=== PATIENT | male | born 1935 | race Caucasian/White ===

== ENCOUNTER 2019-04-22 16:37 | Inpatient (IN) | payer OTHER, MEDICARE ==
[~2019-04-22] VITALS: Ht 182.9 cm; Wt 96.2 kg
[~2019-04-22 16:37] MED LIST: ASPIRIN EC81 M1; AVELOX 400 MG400 MG PO; VITAMIN C + RO500 MG; ZOCOR40 MG PO
[2019-04-22 16:41] VITALS: BP 150/63
[2019-04-22] MEDS ORDERED: AMOXICILLIN 50500 MG PO (16:56)
[2019-04-22] MEDS ORDERED: SINGULAIR 10 MG10 M1 PO (16:56)
[2019-04-22 17:00] LABS: HEMATOCRIT 39.5 % (42.0-52.0); HEMOGLOBIN 12.9 gm/dL (14.0-18.0); MCH 29.8 pg (26.0-34.0); MCHC 32.6 g/dL (28.0-37.0); MCV 91.4 fL (80.0-100.0); PLATELET COUNT 190 thou/uL (150-400); RBC 4.32 mil/uL (4.50-6.00); RDW 15.1 % (10.5-14.5)
[2019-04-22 17:11] LABS: ANION GAP 7 mmol/L (7-16); BUN 19 mg/dL (7-18); CALCIUM 9.5 mg/dL (8.5-10.1); CHLORIDE 98 mmol/L (98-107); CO2 29 mmol/L (21-32); CREATININE 1.7 mg/dL (0.7-1.3); GLUCOSE 118 mg/dL (74-106); POTASSIUM 5.3 mmol/L (3.5-5.1); SODIUM 134 mmol/L (136-145)
[2019-04-22 17:21] LABS: ALBUMIN 4.1 g/dL (3.4-5.0); SGOT 21 U/L (15-37); SGPT 17 U/L (30-65); TOTAL BILIRUBIN 0.8 mg/dL (<0.1-1.0); TOTAL PROTEIN 8.1 g/dL (6.4-8.2); TROPONIN-I <0.06 ng/mL (<0.06)
[2019-04-22 17:30] LABS: ABSOLUTE NEUTROPHILS 25.8 thou/uL (1.4-8.2); ANISOCYTOSIS 1+
[2019-04-22 18:03] LABS: URINE BILIRUBIN NEGATIVE (Negative); URINE BLOOD TRACE (Negative); URINE CLARITY CLEAR; URINE COLOR YELLOW; URINE GLUCOSE-RANDOM* NEGATIVE (Negative); URINE KETONES NEGATIVE (Negative); URINE LEUKOCYTES-REFLEX NEGATIVE (Negative); URINE NITRITE-REFLEX NEGATIVE (Negative); URINE PROTEIN (DIPSTICK) TRACE (Negative); URINE SPECIFIC GRAVITY >= 1.030 (1.005-1.035); URINE UROBILINOGEN 0.2 E.U./dl (0.2-1.0)
--- NOTE | 2019-04-22 19:34 | NUR ---
RECIEVED REPORT FROM MARSHALL LEWIS
[2019-04-22 22:07] VITALS: BP 110/53
--- NOTE | 2019-04-22 22:20 | NUR ---
REPORT GIVEN TO ANA LEWIS ON 4S
[2019-04-22 22:26] VITALS: BP 109/49
[2019-04-22 23:16] VITALS: BP 133/66
[2019-04-23 00:18] VITALS: BP 133/57
--- NOTE | 2019-04-23 01:06 | NUR ---
PATIENT WAS A NEW ADMISSION TO THE UNIT THIS SHIFT. HE ARRIVED VIA CART FROM THE ER AND WAS ABLE TO AMBULATE TO BED WITH ASSISTANCE INCIDENT FREE. PATIENT IS FULLY ALERT AND ORIENTED AND ABLE TO PARTICIPATE FULLY IN ADMISSION AND CALL FOR NEEDS. PATIENT IS IMPULSIVE AT TIMES AND NOT ALWAYS COMPLIANT WITH HIGH FALL RISK PROTOCOL. NURSE TO COMPLETE ADMISSION AND INITIATE CARE PLAN.
[2019-04-23 03:09] LABS: HEMATOCRIT 35.1 % (42.0-52.0); HEMOGLOBIN 11.4 gm/dL (14.0-18.0); MCH 29.6 pg (26.0-34.0); MCHC 32.4 g/dL (28.0-37.0); MCV 91.4 fL (80.0-100.0); RBC 3.84 mil/uL (4.50-6.00); RDW 14.8 % (10.5-14.5); WBC 24.2 thou/uL (4.0-11.0)
[2019-04-23 03:19] LABS: ALBUMIN 3.3 g/dL (3.4-5.0); CALCIUM 8.3 mg/dL (8.5-10.1); CREATININE 1.5 mg/dL (0.7-1.3); TOTAL BILIRUBIN 0.8 mg/dL (<0.1-1.0); TOTAL PROTEIN 6.2 g/dL (6.4-8.2)
[2019-04-23 03:46] LABS: POTASSIUM 4.2 mmol/L (3.5-5.1)
[2019-04-23 04:08] VITALS: BP 99/49
[2019-04-23 07:13] VITALS: BP 124/48
--- NOTE | 2019-04-23 08:11 | EKG ---
[address] [address] ELECTROCARDIOGRAM REPORT Name: JUAN DAVIS Room #: 442-P ADM IN M.R.#: [id number] Admission: 04/22/19 Attend Phys: Kristian Rivera Discharge: Date of : 39 Report #: [id number] THIS REPORT FOR: //name// [facility] ED Test Date: 2019-04-22 Test Time: 16:44:26 Pat Name: JUAN DAVIS Department: Room: 2 Gender: M Pulmonologist/Intensivist: RODRIGUE : 1935 Requested By: Judy Watts Order Number: [id number] MD: Andre Casper Measurements Intervals [place] Rate: 63 P: 13 MI: 133 QRS: -35 QRSD: 114 T: 42 QT: 395 QTc: 405 Interpretive Statements Sinus rhythm Incomplete right bundle branch block Abnormal R-wave progression, late transition Left ventricular hypertrophy No previous ECG available for comparison Electronically Signed On 04-23-2019 8:11:02 CDT by Andre Casper [email or web address] <ELECTRONICALLY SIGNED> By: Andre Casper MD 04/23/19 0811 1644 164 Andre Casper MD /EPI
--- NOTE | 2019-04-23 09:56 | H ---
[facility] [place] [address] HISTORY AND PHYSICAL Name: JUNA DAVIS Mady Room #: 442-P [facility] IN .R.#: [id number] Admission: 04/22/19 Attend Phys: Kristian Rivera Discharge: Date of : 37 Report #: [id number] THIS REPORT FOR: //name// CC: Pieter Balbuena DATE OF SERVICE: 04/22/2019 CHIEF COMPLAINT: Fever and malaise. HISTORY OF PRESENT ILLNESS: The patient is an 83-year-old male sent to the Emergency Room yesterday with a couple of day illness consisting of fatigue, malaise, general body aches and fever. He had a dental extraction this past Sunday and under anesthesia and had some nausea post-procedure. However, he said 2 days later, he began to experience body aches, fatigue, general malaise and loss of appetite. He was seen in the office yesterday and there was report of fever and he was sent to the Emergency Room. He has been generally weak and unsteady as well and has reported some symptoms of shortness of breath as well. PAST MEDICAL HISTORY: Chronic sinusitis. PAST SURGICAL HISTORY: None. FAMILY HISTORY: Noncontributory. SOCIAL HISTORY: Lives at home. No chronic alcohol or tobacco use. ALLERGIES: None. MEDICATIONS: Singulair, amoxicillin, Zocor. REVIEW OF SYSTEMS: He denies headache, chest pain, productive cough, nausea, vomiting, diarrhea, constipation, dysuria, syncope. OBJECTIVE: VITAL SIGNS: T-max was 38.1, currently 36.6, pulse 56, respirations 18, blood pressure 124/58, O2 sat 94% on room air. GENERAL: He is awake and alert, in no distress. HEAD AND NECK: Unremarkable. There is no palpable tenderness or swelling of the right lower jaw or neck. LUNGS: Clear. HEART: Regular. No murmur by auscultation. ABDOMEN: Soft, normoactive bowel sounds. No rebound or guarding. EXTREMITIES: No cyanosis, clubbing or edema. I see no petechial rash on the hands or feet. NEUROLOGIC: Cranial nerves intact. Speech is fluent. Motor strength intact. [facility] [address] [place] [address] HISTORY AND PHYSICAL Name: JUAN DAVIS Room #: [address] [place] [address] IN [facility]#: [id number] Admission: 04/22/19 Attend Phys: Kristian Rivera Discharge: Date of : 37 Report #: [id number] LABORATORY DATA: White count was 24,000. Creatinine was 1.7, albumin 3.3. Urinalysis fairly unremarkable. Troponin negative. CT head unremarkable. Chest x-ray shows atelectasis. CT abdomen, there is some area of concern around the gallbladder. ASSESSMENT: 1. Febrile illness. 2. Leukocytosis. 3. Acute kidney injury due to prerenal status. 4. Mild protein-calorie malnutrition. 5. Recent dental extraction. PLAN: The first priority at this point will be to rule out endocarditis. An echocardiogram will be ordered. Blood cultures have been taken through the ER. I asked for an ultrasound of the gallbladder and Infectious Disease consultation. For now, discontinue antibiotics, but likely require IV after ID assessment. <ELECTRONICALLY SIGNED> By: Paulo Dias MD 04/23/19 0956 [id number] 0817 Paulo Dias MD /nt
--- NOTE | 2019-04-23 10:36 | NUR ---
ASSESSMENT: CM REVIEWED CHART AND MET WITH PATIENT AT THE BEDSIDE. PT WAS ADMITTED WITH CARMEN/DEHYDRATION/LEUKOCYTOSIS. PT REPORTS THAT HE LIVES IN A HOUSE WITH HISE . PT REPORTS ABOUT 6 STEPS WITH HANDRAILS TO GET IN THE HOME AND NO STEPS ONCE INSIDE. PT REPORTS AMBULATING INDEPENDENTLY AND IS INDELENDENT WITH ADLS. PT REPORTS HE HAS NEVER HAD HH IN THE PAST OR BEEN TO A SNF. CM DISCUSSED ROLE. PT DOES NOT ANTICIPATE HAVING ANY NEEDS AT DISCHARGE BUT REPORTS HE IS NORMALLY VERY INDEPENDENT. CM WILL CONTINUE TO FOLLOW TO ASSIST NEEDED.
[2019-04-23 11:17] VITALS: BP 136/67
--- NOTE | 2019-04-23 15:23 | 2DMMODE ---
[place] [address] 2 D/M-MODE ECHOCARDIOGRAM Name: JUAN DAVIS Room #: 442-P [facility] IN [facility]#: [id number] Admission: 04/22/19 Attend Phys: Pieter Prather Discharge: Date of : 37 Report #: [id number] THIS REPORT FOR: //name// APPROVED REPORT Study performed: 04/23/2019 14:02:13 EXAM: Comprehensive 2D, Doppler, and color-flow Echocardiogram Patient Location: Bedside Room #: 441 Status: routine BSA: 2.18 HR: 55 bpm BP: 124/48 mmHg Rhythm: Bradycardia Other Information Study Quality: Adequate Indications Fever R^O SBE 2D Dimensions RVDd: 40.39 mm IVSd: 9.83 (7-11mm) LVOT Diam: 20.83 (18-24mm) LVDd: 52.02 mm PWd: 9.78 (7-11mm) Ascending Ao: 29.01 (22-36mm) LVDs: 31.70 (25-40mm) Aortic Root: 35.24 mm IVC: 14.00 mm Volumes Left Atrial Volume (Systole) Single Plane 4CH: 38.94 mL Single Plane 2CH: 40.33 mL LA ESV Index: 20.00 mL/m2 Aortic Valve AoV Peak Raul.: 1.98 m/s AO Peak Gr.: 15.81 mmHg LVOT Max P.31 mmHg LVOT Max V: 1.15 m/s LEW Vmax: 1.99 cm2 Mitral Valve E/A Ratio: 1.5 MV Decel. Time: 188.34 ms [facility] [address] [place] [address] 2 D/M-MODE ECHOCARDIOGRAM Name: RYANJUAN Mady Room #: 442-P [facility]#: [id number] Admission: 04/22/19 Attend Phys: Pieter Prather Discharge: Date of : 37 Report #: [id number] MV E Max Raul.: 0.98 m/s MV A Raul.: 0.65 m/s MV PHT: 54.62 ms IVRT: 96.89 ms Pulmonary Valve PV Peak Raul.: 1.14 m/s PV Peak Gr.: 5.19 mmHg Pulmonary Vein P Vein S: 0.51 m/s P Vein A: 0.33 m/s P Vein D: 0.39 m/s P Vein A Dur.: 106.1 msec P Vein S/D Ratio: 1.31 Tricuspid Valve TR Peak Raul.: 3.06 m/s TR Peak Gr.: 37.57 mmHg PA Pressure: 43.00 mmHg Left Ventricle The left ventricle is normal size. There is normal LV segmental wall motion. There is normal left ventricular wall thickness. The left ventricular systolic function is normal. The left ventricular ejection fraction is within the normal range. LVEF is 55-60%. The left ventricular diastolic function is normal. Right Ventricle The right ventricle is normal size. The right ventricular systolic function is normal. Atria The left atrium size is normal. The right atrium size is normal. Aortic Valve The aortic valve is normal in structure. Aortic valve is calcified. No aortic regurgitation is present. There is no aortic valvular stenosis. Mitral Valve The mitral valve is normal in structure. Trace mitral regurgitation. No evidence of mitral valve stenosis. Tricuspid Valve The tricuspid valve is normal in structure. There is mild tricuspid regurgitation. Estimated PAP 43 mmHg. There is moderate pulmonary hypertension. [facility] [address] [place] [address] 2 D/M-MODE ECHOCARDIOGRAM Name: JUAN DAVIS Room #: 442-P [facility] IN [facility]#: [id number] Admission: 04/22/19 Attend Phys: Pieter Prather Discharge: Date of : 37 Report #: [id number] Pulmonic Valve The pulmonary valve is normal in structure. There is no pulmonic valvular regurgitation. Great Vessels The aortic root is normal in size. IVC is normal in size and collapses >50% with inspiration. Pericardium There is no pericardial effusion. <Conclusion> The left ventricle is normal size. LVEF is 55-60%. The aortic valve is normal in structure. Aortic valve is calcified. The mitral valve is normal in structure. Trace mitral regurgitation. The tricuspid valve is normal in structure. There is mild tricuspid regurgitation. Estimated PAP 43 mmHg. There is moderate pulmonary hypertension. The pulmonary valve is normal in structure. There is no pericardial effusion. <ELECTRONICALLY SIGNED> By: Taqueria Millard MD 04/23/19 1523 1523 1523 Taqueria Millard MD /INF
[2019-04-23 15:55] VITALS: BP 145/70
--- NOTE | 2019-04-23 19:08 | NUR ---
Assumed care approx. 0700 this AM. A couple dizzy spells noted when standing to use the urinal or transferring to a wheelchair, but patient never had any episodes of falling. Amoxicillin was dc'd...awaiting abx orders from ID doctor pending blood cultures. Patient's at bedside most of the day, questions answered and concerns addressed. Not much progress toward plan of care yet as patient has only had diagnostic testing and maintenance fluids. No acute events noted today.
[2019-04-23 19:30] VITALS: BP 132/64
[2019-04-24 03:55] VITALS: BP 127/64
--- NOTE | 2019-04-24 05:32 | NUR ---
Positive blood culture (Gm positive cocci) called to Dr. Svetlana Balbuena and order received. Pt. informed of above and new order for IV antibiotics . He slept some during the night. Up with assist to bathroom. Bed alarm on for safety. Will continue to monitor.
[2019-04-24 05:47] LABS: HEMATOCRIT 35.1 % (42.0-52.0); HEMOGLOBIN 11.6 gm/dL (14.0-18.0); MCH 30.2 pg (26.0-34.0); MCV 91.4 fL (80.0-100.0); RBC 3.84 mil/uL (4.50-6.00); RDW 15.2 % (10.5-14.5); WBC 24.8 thou/uL (4.0-11.0)
[2019-04-24 06:11] LABS: CALCIUM 8.6 mg/dL (8.5-10.1); CREATININE 1.4 mg/dL (0.7-1.3); POTASSIUM 4.3 mmol/L (3.5-5.1)
[2019-04-24 07:19] VITALS: BP 117/66
[2019-04-24 11:41] VITALS: BP 148/67
--- NOTE | 2019-04-24 16:13 | NUR ---
Assumed care approx. 0700 this AM. at bedside most of morning and afternoon. Patient seemed slightly confused this afternoon as he thought there was an IV where blood was drawn this morning but it was just a cotton ball; will continue to reassess. An order was placed for patient to start ambulating more, but the patient didn't want to get up this afternoon to walk as he is running a slight fever and feeling weak. Patient encouraged to get up with staff & walk before end of the shift. IV abx infused and maintenance fluids changed per orders. Patient hasn't made significant progression toward goals yet.
[2019-04-24 16:20] VITALS: BP 142/61
[2019-04-24 19:30] VITALS: BP 153/66
--- NOTE | 2019-04-24 21:41 | HC ---
[facility] [place] [address] CONSULTATION Name: JUAN DAVIS Mady Room #: 358-P [facility] IN ..#: [id number] Admission: 04/22/19 Attend Phys: Kristian Rivera Discharge: Date of : 37 Report #: [id number] THIS REPORT FOR: //name// CC: Pieter Balbuena DATE OF SERVICE: 04/23/2019 INFECTIOUS DISEASE CONSULTATION REASON FOR CONSULTATION: I was asked to evaluate concerning postoperative fever. HISTORY OF PRESENT ILLNESS: The patient is an 83-year-old who presents with fever, fatigue, myalgias, arthralgias two days after dental extraction of tooth #32. Prior to this, he was diagnosed with an apical abscess. He was on antibiotics for several weeks, most recently cephalexin. The extraction went without complication. Within 48 hours, he developed fever and chills. He had mild amount of pain in the right jaw region. No swelling. Denies any headache, neck pain or discomfort. No dysphagia. He has been anorexic. He has chronic sinus drainage and persistent cough with minimal sputum production. No shortness of breath or chest pain. No palpitations. No nausea, vomiting or diarrhea. No dysuria or frequency. No flank pain. He has had no arthritis or rash. REVIEW OF SYSTEMS: Full 10-point review of system was negative other than what has been described above. PAST MEDICAL HISTORY: Chronic sinusitis. FAMILY HISTORY: Noncontributory. SOCIAL HISTORY: Nonsmoker, no significant alcohol intake. ALLERGIES: None known. MEDICATIONS: Included amoxicillin, Singulair and Zocor prior to his admission. PHYSICAL EXAMINATION: VITAL SIGNS: He is afebrile and hemodynamically stable. GENERAL: He is alert and cooperative and pleasant, in no acute distress. SKIN: Without rash or decubitus. No palpable adenopathy. HEENT: Eyes, without scleral icterus. Mouth with tenderness over the socket of the tooth #32 in the right posterior mandible. Minimal swelling. No trismus. Mouth without mucositis. NECK: Supple. Pulses were palpable in the carotids bilaterally. There is no tenderness. [address] [address] CONSULTATION Name: RYANJUAN Mady Room #: 358-P [facility] IN [facility]#: [id number] Admission: 04/22/19 Attend Phys: Kristian Rivera Discharge: Date of : 37 Report #: [id number] LUNGS: Clear. HEART: Regular, without murmur, gallop or rub. ABDOMEN: Soft, nontender, no hepatosplenomegaly or mass. GENITORECTAL: Not performed. NEUROLOGIC: Cranial nerves intact. Strength in upper and lower extremities is normal. EXTREMITIES: Without clubbing, cyanosis or edema. BACK: Nontender with no CVA tenderness or spinal tenderness. LABORATORY STUDIES: Sodium 135, potassium 4.2, bicarbonate 27, creatinine 1.5. Liver function test normal. Hemoglobin 11, WBC 24.2, platelet count 158,000. ESR 24. Urinalysis unremarkable. Blood cultures are pending. Chest x-ray with some basilar atelectasis. CT scan of the abdomen and pelvis density along the wall of the gallbladder consistent with sludge. Ultrasound confirms CT of the head unremarkable. IMPRESSION: An 83-year-old with fever and leukocytosis post-dental extraction for apical abscess. So far source of infection is not identified. Typically would see soft tissue abscess or aspiration pneumonia in the setting. RECOMMENDATION: We will evaluate for soft tissue abscess with CT scan of the facial bones and mandible. Repeat chest x-ray to ensure no development of pulmonary infiltrate. We will await blood culture results. Continue IV antibiotics pending cultures. <ELECTRONICALLY SIGNED> By: Adolfo Balbuena MD 04/24/19 2141 0208 Adolfo Balbuena MD /nt
--- NOTE | 2019-04-25 03:43 | NUR ---
PATIENT IS PROGRESSING IN HIS CARE PLAN. VITAL SIGNS STABLE WITH PATIENT HAVING NO COMPLAINTS OF NAUSEA. PATIENT REMAINED FULLY ALERT AND ORIENTED, BUT DID DISPLAY SOME FORGETFULLNESS AROUND 0000 ASSESSMENT. ANTIBIOTICS PER DOCTOR ORDER WITH PATIENT AFEBRILE. UP MULTIPLE TIMES WITH ASSISTANCE INCIDENT FREE, PATIENT IS DIZZY AT TIMES. HE IS NOT HAPPY ABOUT HIGH FALL RISK STATUS BUT HAS BEEN COOPERATIVE. CONTINUE PLAN OF CARE.
[2019-04-25 04:00] VITALS: BP 152/70
[2019-04-25 05:25] LABS: HEMATOCRIT 36.4 % (42.0-52.0); HEMOGLOBIN 11.7 gm/dL (14.0-18.0); MCH 29.6 pg (26.0-34.0); MCHC 32.3 g/dL (28.0-37.0); MCV 91.8 fL (80.0-100.0); PLATELET COUNT 176 thou/uL (150-400); RBC 3.97 mil/uL (4.50-6.00); RDW 14.8 % (10.5-14.5); WBC 28.3 thou/uL (4.0-11.0)
[2019-04-25 06:52] LABS: ALBUMIN 3.4 g/dL (3.4-5.0); CALCIUM 8.6 mg/dL (8.5-10.1); CREATININE 1.5 mg/dL (0.7-1.3); TOTAL BILIRUBIN 0.6 mg/dL (<0.1-1.0); TOTAL PROTEIN 6.5 g/dL (6.4-8.2)
[2019-04-25 07:08] VITALS: BP 117/43
[2019-04-25 08:18] LABS: ABSOLUTE NEUTROPHILS 23.5 thou/uL (1.4-8.2)
[2019-04-25 08:19] LABS: ANISOCYTOSIS 1+
[2019-04-25 11:24] VITALS: BP 155/68
[2019-04-25 13:46] LABS: POTASSIUM 4.4 mmol/L (3.5-5.1)
--- NOTE | 2019-04-25 15:53 | NUR ---
ON-GOING ASSESSMENT: PT HAS A FEVER AND INCREASED WBC. PT REMAINS ON IV ANBX. PT LIVES AT HOME WITH HIS AND WAS INDEPENDENT PRIOR TO ADMISSION.
[2019-04-25 16:10] VITALS: BP 133/62
[2019-04-25 18:58] VITALS: BP 132/62
--- NOTE | 2019-04-25 19:07 | NUR ---
PT is A&OX3, PT is continuing iv abx, pt's vs are stable, pt gets up to chair, pt denies pain and n/v , pt has slowly meeting care plan goals.
[2019-04-26 03:22] VITALS: BP 138/62
[2019-04-26 05:34] LABS: HEMATOCRIT 34.3 % (42.0-52.0); HEMOGLOBIN 11.2 gm/dL (14.0-18.0); MCH 30.1 pg (26.0-34.0); MCHC 32.8 g/dL (28.0-37.0); MCV 91.9 fL (80.0-100.0); PLATELET COUNT 150 thou/uL (150-400); RBC 3.73 mil/uL (4.50-6.00); RDW 14.5 % (10.5-14.5); WBC 29.4 thou/uL (4.0-11.0)
--- NOTE | 2019-04-26 06:08 | NUR ---
ASSUMED CARE AT 1900. PT INITIALLY DENIED ANY SOB, NAUSEA, OR PAIN. STATED HE FELT TIRED BUT FELT IT WAS DUE TO LYING IN BED SO MUCH; REPORTED SOME NAUSEA AT DINNER BUT STATED IT HAD GONE AWAY. IV ABX INFUSED OVERNIGHT. ABOUT MIDNIGHT, PT BEGAN C/O LEFT GREAT TOE/FOOT PAIN THAT GOT PROGRESSIVELY WORSE, REPORTED BEING VERY TENDER TO THE TOUCH. NO SIGN OF REDNESS OR SWELLING. PT DID STATE HE HAD A HISTORY OF GOUT. OBTAINED ORDER FOR ONE TIME DOSE OF COLCHICINE WELL PRN TYLENOL AND TRAMADOL; GAVE ONE TRAMADOL WITH THE COLCHICINE. PT REPORTED SOME IMPROVEMENT IN PAIN. NO OTHER CONCERNS, WILL CONTINUE TO MONITOR.
[2019-04-26 06:09] LABS: ABSOLUTE NEUTROPHILS 25.3 thou/uL (1.4-8.2)
[2019-04-26 06:10] LABS: PLATELET ESTIMATE NORMAL
[2019-04-26 07:08] LABS: HEMOGLOBIN 11.8 g/dL (13.0-17.7)
[2019-04-26 07:12] VITALS: BP 136/66
[2019-04-26 11:07] VITALS: BP 122/62
[2019-04-26 15:20] VITALS: BP 144/65
--- NOTE | 2019-04-26 15:50 | NUR ---
pt is A&OX3, PT is continuing iv abx , pt has new medications for gout, pt's pain can control , pt's vs are stable, pt 's family stay pt's bedside now.
[2019-04-26 20:21] VITALS: BP 146/63
[2019-04-27 04:24] VITALS: BP 151/64
--- NOTE | 2019-04-27 04:45 | NUR ---
ASSUMED CARE AT 1900. PT INITIALLY VERY ANXIOUS AND FRUSTRATED D/T GOUTY PAIN IN LEFT FOOT, POOR APPETITE W/ SOME NAUSEA WHEN TRYING TO EAT, STILL BEING IN THE HOSPITAL, ETC. C/O HAVING AN EPISODE OF DIARRHEA AROUND SHIFT CHANGE; WORRIED HE WOULD CONTINUE HAVING DIARRHEA OVERNIGHT. TALKED ABOUT SIDE EFFECTS OF THE GOUT MEDICATION AND ANTIBIOTICS. AT 2000, PT WAS SAYING HIS FOOT WAS VERY TENDER TO TOUCH ESPECIALLY WHEN TRYING TO GET UP AND WALK TO BATHROOM; AT MIDNIGHT, PT REPORTED THE PAIN WAS MUCH LESS NOTICEABLE. IV ABX INFUSING OVERNIGHT. NO OTHER CONCERNS, WILL CONTINUE TO MONITOR.
[2019-04-27 05:36] LABS: HEMATOCRIT 33.3 % (42.0-52.0); MCH 30.2 pg (26.0-34.0); MCHC 33.1 g/dL (28.0-37.0); MCV 91.5 fL (80.0-100.0); RBC 3.64 mil/uL (4.50-6.00); RDW 14.7 % (10.5-14.5); WBC 30.4 thou/uL (4.0-11.0)
[2019-04-27 05:49] LABS: CALCIUM 8.4 mg/dL (8.5-10.1); CREATININE 1.4 mg/dL (0.7-1.3); POTASSIUM 4.2 mmol/L (3.5-5.1)
[2019-04-27 07:25] VITALS: BP 137/66
[2019-04-27 11:52] VITALS: BP 128/64
--- NOTE | 2019-04-27 12:31 | EKG ---
[address] [place] [address] ELECTROCARDIOGRAM REPORT Name: GLENN DAVISTasneem Earl Room #: 358- ADM IN M.R.#: [id number] Admission: 04/22/19 Attend Phys: Kristian Rivera Discharge: Date of : 37 Report #: [id number] THIS REPORT FOR: //name// [facility] Test Date: 2019-04-27 Test Time: 10:19:38 Pat Name: JUAN DAVIS Department: Room: 358 Gender: M Claims Adjuster Supervisor: Kristian ESCOBAR : 1935 Requested By: Paulo Dias Order Number: [id number] MD: Jl Abreu Measurements Intervals [place] Rate: 60 P: 22 [place]: 132 QRS: -32 QRSD: 114 T: -14 QT: 424 QTc: 424 Interpretive Statements Sinus rhythm Borderline IVCD with LAD RSR' in V1 or V2, probably normal variant Borderline T abnormalities, inferior leads Compared to ECG 04/22/2019 16:44:26 No significant change was found Electronically Signed On 04-27-2019 12:30:57 CDT by Jl Abreu [email or web address] <ELECTRONICALLY SIGNED> By: Jl Abreu MD, [facility] 04/27/19 1230 1019 1019 Jl Abreu MD, [facility] /EPI
[2019-04-27 16:09] VITALS: BP 136/68
--- NOTE | 2019-04-27 18:34 | NUR ---
pt is A&OX3, pt is continuing iv abx, pt's vs are stable , pt denies pain and n/v at this time,Heme has seeing pt, no new order at this time.
[2019-04-27 19:30] VITALS: BP 125/56
[2019-04-28 04:00] VITALS: BP 132/66
[2019-04-28 07:15] VITALS: BP 109/54
--- NOTE | 2019-04-28 07:42 | NUR ---
ASSUMED CARE AT 1900. PT REPORTS LEFT FOOT PAIN HAS IMPROVED TO THE POINT HE CAN WALK AROUND THE UNIT, BUT STILL HAS MODERATE AMOUNT OF DISCOMFORT. FOOT IS WARM, WITH PATCHY PINK AREAS, AND NONPITTING, TIGHT EDEMA. DENIES NAUSEA OR SOB OVERNIGHT. NO OTHER CONCERNS, SHIFT REPORT GIVEN AT 0715.
[2019-04-28 11:43] VITALS: BP 151/66
--- NOTE | 2019-04-28 12:14 | NUR ---
ON-GOING ASSESSMENT: PTS WBC IS 30.4K. PT REMAINS ON IV ANBX. CM WILL CONTINUE TO FOLLOW TO ASSIST NEEDED.
[2019-04-28] MEDS ORDERED: COLCHICINE0.6 MG PO (13:17)
[2019-04-28] MEDS ORDERED: AMOX TR-K CLV1 EAC4 PO (13:33)
[2019-04-28 14:31] VITALS: BP 151/66
--- NOTE | 2019-04-28 15:00 | NUR ---
PT IS DISCHARGED TO HOME VERBALIZES UNDERSTANDING OF INSTRUCTIONS AND SCRIPTS GIVEN TO PATIENT. WITH PT. TAKEN OUT TO VIA WHEEL CHAIR NO ISSUES OR CONCERNS NOTED AT THIS TIME.
--- NOTE | 2019-05-02 10:14 | D ---
[facility] [place] [address] DISCHARGE SUMMARY Name: JUAN DAVIS Room #: 358-P [facility] IN ..#: [id number] Admission: 04/22/19 Attend Phys: Kristian Rivera Discharge: 04/28/19 Date of : 37 Report #: [id number] THIS REPORT FOR: //name// CC: Pieter Balbuena DATE OF SERVICE: 04/28/2019 FINAL DIAGNOSES: 1. Leukocytosis. 2. Fever. 3. Acute gout. HOSPITAL COURSE: The patient was admitted through the Emergency Room with fever and leukocytosis. There was a concern of a possible infection related to a recent dental extraction. Blood cultures were obtained through the ER. Ultimately, these grew coag-negative Staph epi. This was felt to be a contaminant. Follow up blood culture was negative. Echocardiogram was negative. Other imaging studies were unremarkable. There was no other definitive source of infection identified. Dr. Adolfo Balbuena recommended they complete an oral course of Augmentin at home for an additional week related to his tooth. His white count remained elevated between 24 and 30,000. Hematology service assessed him, but they did not feel this was medical sales representative of a hematologic disorder, but more of a leukemoid reaction to acute inflammation. During the course of his stay, he complained of pain in the left first toe consistent with a gout flare. His uric acid was 7.5. X-ray of the left knee showed degenerative arthritis and a small effusion, but there was no warmth, redness or swollen area to suggest acute inflammatory reaction in this area. He responded to colchicine. DISPOSITION: He will be discharged to home to resume all diet, activity and prior medications. He will have colchicine 1 daily for a week, Augmentin 875 mg twice a day for a week. Follow up with Dr. Bonifacio Balbuena in 1 week for lab work. <ELECTRONICALLY SIGNED> By: Paulo Dias MD 05/02/19 1014 1338 [id number] Paulo Dias MD /nt
== END 2019-04-28 15:11 | disposition home or self-care (01) | DRG 157 ==
LOC: ER 16:37 → EROBS 20:27 → 4S 20:27 → 3W 20:27 → 4S 22:54 → 3W 04-24 13:37
PROVIDERS: Emergency Medicine Emergency Medical Services; Internal Medicine Geriatric Medicine; Nurse Practitioner; Nurse Practitioner Family; Specialist; ADMIT Internal Medicine
DX: K04.7 Periapical abscess without sinus (principal); N17.0 Acute kidney failure with tubular necrosis; E44.1 Mild protein-calorie malnutrition; R65.10 Systemic inflammatory response syndrome (SIRS) of non-infectious origin without acute organ dysfunction; R50.9 Fever, unspecified; E86.0 Dehydration; M10.9 Gout, unspecified; D72.0 Genetic anomalies of leukocytes; E78.5 Hyperlipidemia, unspecified; D64.9 Anemia, unspecified; Z68.28 Body mass index [BMI] 28.0-28.9, adult; Z79.899 Other long term (current) drug therapy
CPT/HCPCS: 10100; 10879

== ENCOUNTER → 2020-11-17 | Outpatient (CLI) | payer OTHER, MEDICARE ==
[~2020-11-17] MED LIST changes: +AMOX TR-K CLV1 EAC4 PO; +AMOXICILLIN 50500 MG PO; +COLCHICINE0.6 MG PO; +SINGULAIR 10 MG10 M1 PO
== END ==
LOC: SJCVC 11:03
PROVIDERS: ATTEND Internal Medicine
DX: R06.00 Dyspnea, unspecified (principal); E78.5 Hyperlipidemia, unspecified; I12.9 Hypertensive chronic kidney disease with stage 1 through stage 4 chronic kidney disease, or unspecified chronic kidney disease; Z79.899 Other long term (current) drug therapy

== ENCOUNTER → 2020-11-24 | Outpatient (CLI) | payer OTHER, MEDICARE | LOC: SJCVCIMAG 10:46 | PROVIDERS: ATTEND Internal Medicine | DX: I08.2 Rheumatic disorders of both aortic and tricuspid valves (principal); I11.9 Hypertensive heart disease without heart failure; I27.20 Pulmonary hypertension, unspecified; R00.1 Bradycardia, unspecified; R06.00 Dyspnea, unspecified; I45.10 Unspecified right bundle-branch block; E78.5 Hyperlipidemia, unspecified; I45.2 Bifascicular block; R51.9 Headache, unspecified ==

== ENCOUNTER → 2020-12-13 | Outpatient (CLI) | payer OTHER ==
--- NOTE | ~2020-12-13 | SPIROMETRY ---
[facility] [place] [address] SPIROMETRY Name: RYANJUAN Mady Room #: JOSE FRAZIER Emily#: [id number] Admission: 12/13/20 Attend Phys: Pieter Balbuena MD Discharge: Date of : 37 Report #: [id number] THIS REPORT FOR: //name// >> SPIROMETRY: (BTPS) Height: in cm Weight: lbs kg Exam Date: PRE-RX POST-RX PRED BEST %PRED BEST %PRED %CHG FVC LITERS . . . . . . FEV1 LITERS . . . . . . FEV1/FVC % . . . . . . NCF51-98% L/Sec . . . . . . PEF L/SEC . . . . . . FEF50/FIF50 UNITLESS . . . . . . >> INTERPRETATION/IMPRESSION: DOC #: [id number] cc: MD Edwar Matson MD PULMONARY FUNCTION TEST Spirometric examination showed normal flow. There was no significant bronchodilator response. Flow volume loop is normal. IMPRESSION: Normal spirometry. MD LAUREN Francis/MUK By: Edwar Nieto MD /ciara
== END ==
LOC: PUL 13:23
PROVIDERS: ATTEND Internal Medicine
DX: R06.00 Dyspnea, unspecified (principal)

== ENCOUNTER → 2020-12-27 | Outpatient (CLI) | payer OTHER | LOC: SJCVC 16:16 | PROVIDERS: ATTEND Internal Medicine | DX: R94.31 Abnormal electrocardiogram [ECG] [EKG] (principal); I45.2 Bifascicular block; I13.10 Hypertensive heart and chronic kidney disease without heart failure, with stage 1 through stage 4 chronic kidney disease, or unspecified chronic kidney disease; N18.2 Chronic kidney disease, stage 2 (mild); I49.8 Other specified cardiac arrhythmias; R06.00 Dyspnea, unspecified; R55 Syncope and collapse; E78.5 Hyperlipidemia, unspecified; Z79.899 Other long term (current) drug therapy ==

== ENCOUNTER → 2021-01-12 | Outpatient (CLI) | payer OTHER | LOC: SJCVCIMAG 13:26 | PROVIDERS: ATTEND Internal Medicine | DX: R42 Dizziness and giddiness (principal); R06.09 Other forms of dyspnea; I10 Essential (primary) hypertension; R94.31 Abnormal electrocardiogram [ECG] [EKG]; Z79.899 Other long term (current) drug therapy ==

== ENCOUNTER → 2021-01-19 | Outpatient (CLI) | payer OTHER | LOC: SJCVC 16:06 | PROVIDERS: ATTEND Internal Medicine Cardiovascular Disease | DX: R94.31 Abnormal electrocardiogram [ECG] [EKG] (principal); I45.10 Unspecified right bundle-branch block; I49.5 Sick sinus syndrome; M10.9 Gout, unspecified; E78.5 Hyperlipidemia, unspecified; I10 Essential (primary) hypertension; Z79.899 Other long term (current) drug therapy ==

== ENCOUNTER 2021-01-28 09:32 | Observation (INO) | payer OTHER ==
[~2021-01-28] VITALS: Ht 182.9 cm; Wt 97.1 kg
--- NOTE | ~2021-01-28 | P ---
[facility] [place] [address] PROCEDURE REPORT Name: JUAN DAVIS Room #: 203-P [facility] Sushila Diaz#: [id number] Admission: 01/28/21 Attend Phys: Andre Casper MD Discharge: 01/29/21 Date of : 39 Report #: [id number] THIS REPORT FOR: cc: Pieter Balbuena MD, Christopher B. MD Couchonnal, Luis F. MD ~ PREOPERATIVE DIAGNOSIS: Sick sinus syndrome. POSTOPERATIVE DIAGNOSIS: Sick sinus syndrome. PROCEDURES PERFORMED: Dual-chamber pacemaker implantation. 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 He is here for a dual-chamber pacemaker implantation. ANESTHESIA: The patient underwent MAC anesthesia with no anesthesia related complications. DESCRIPTION OF PROCEDURE: The patient underwent informed consent. We discussed the details of the procedure including the risks, which include but not limited to bleeding, infection, vascular damage, cardiac perforation, pneumothorax. He understood these risks and is willing to proceed. The patient was brought to the EP laboratory in a fasting and sedated state, prepped and draped in a sterile fashion. He underwent venogram showing ____ left axillary vein, received IV antibiotics. Next, I injected lidocaine at the incision site. Incision was made, pocket created over prepectoral fascia and access was obtained twice of the left axillary vein using the extrathoracic approach. Sheaths were positioned using the modified Seldinger technique. Next, under fluoroscopy, leads were positioned in right ventricle and right atrial appendage, both with accurate pacing and sensing thresholds. The leads were sutured to prepectoral fascia, connected to the leads and a tug test performed. Pocket irrigated with vancomycin and closed in 2 layers. A surgical glue was placed in outer skin layer. The patient awoke neurologically and hemodynamically intact. No complications and no significant bleeding. The implanted pacemaker is Awdio, model #W3TR01, serial #[id number], atrial lead was a 5076, serial #[id number] and the ventricular lead was a 5076, serial #[id number]. The atrial lead demonstrated P-wave of 1.7 millivolts, pacing impedance of 494 ohms, pacing threshold of 0.5 volts at 0.5 milliseconds. RV lead demonstrated R-wave of 6.7 millivolts, pacing impendence of ____ ohms and a pacing threshold of 0.8 volts at 0.5 milliseconds. The device was programmed with AAIR/DDDR mode with a lower rate of 75 beats per minute and a max rate of 130 beats per minute. During implant, he did have evidence of an accelerated [facility] [address] [place] [address] PROCEDURE REPORT Name: JUAN DAVIS Room #: 203-P [facility] Sushila M.RJessica#: [id number] Admission: 01/28/21 Attend Phys: Andre Casper MD Discharge: 01/29/21 Date of : 39 Report #: [id number] junctional in the 60s-70s, therefore we programmed the lower rate a little higher. CONCLUSIONS: 1. Successful dual-chamber pacemaker implantation. 2. Satisfactory atrial and ventricular pacing and sensing thresholds. By: [id number] Andre Casper MD /nt
[2021-01-28 09:58] VITALS: BP 167/70
[2021-01-28 10:59] LABS: ABSOLUTE NEUTROPHILS 11.6 thou/uL (1.4-8.2); BASOPHILS 0.8 % (0.0-2.0); EOSINOPHILS 1.7 % (0.0-3.0); HEMATOCRIT 39.5 % (42.0-52.0); HEMOGLOBIN 12.7 gm/dL (14.0-18.0); LYMPHOCYTES 11.8 % (24.0-44.0); MCH 29.5 pg (26.0-34.0); MCHC 32.1 g/dL (28.0-37.0); MCV 91.9 fL (80.0-100.0); MONOCYTES 6.4 % (1.0-8.0); PLATELET COUNT 199 thou/uL (150-400); POLYS 79.3 % (36.0-66.0); RBC 4.29 mil/uL (4.50-6.00); RDW 15.2 % (10.5-14.5); WBC 14.6 thou/uL (4.0-11.0)
[2021-01-28 11:09] LABS: CREATININE 1.5 mg/dL (0.7-1.3)
[2021-01-28 11:11] LABS: APTT 27.4 Seconds (24.5-32.8); INR 1.15; POTASSIUM 5.4 mmol/L (3.5-5.1); PROTIME 12.5 Seconds (10.5-12.1)
[2021-01-28 11:15] LABS: ALBUMIN 3.6 g/dL (3.4-5.0); TOTAL BILIRUBIN 0.6 mg/dL (0.2-1.0); TOTAL PROTEIN 7.8 g/dL (6.4-8.2)
[2021-01-28 21:24] VITALS: BP 149/73
[2021-01-28 23:52] VITALS: BP 169/68
--- NOTE | 2021-01-29 01:27 | NUR ---
UPON INITIAL ASSESSMENT PATIENT REPORTED SYMPTOMS OF URINARY RETENTION TO NURSE. BLADDER SCAN SHOWED PATIENT TO HAVE >480 CC'S IN BLADDER WITH COMPLAINTS OF PAIN WHEN TRYING TO VOID. ORDERS OBTAINED FOR TAMSULOSIN AND STRAIGHT CATHETER. NURSE REMOVED 725 CC'S OF URINE DURING STRAIGHT CATH. NURSE TO CONTINUE MONITORING.
[2021-01-29 04:45] VITALS: BP 167/82
--- NOTE | 2021-01-29 06:04 | NUR ---
PATIENT UNABLE TO VOID POST STRAIGHT CATH. BLADDER SCAN SHOWED 538 CC'S URINE IN BLADDER. NURSE INITIATED QUACH CATH PER PROVIDERS ORDER WITH IMMEDIATE RETURN OF GREATER THAN 600 CC'S OF URINE.
[2021-01-29 07:56] VITALS: BP 162/83
[2021-01-29] MEDS ORDERED: FLOMAX0.4 MG PO ×2 (10:02→10:49)
[2021-01-29 10:14] LABS: URINE BILIRUBIN NEGATIVE (Negative); URINE BLOOD 2+ (Negative); URINE CLARITY CLEAR; URINE COLOR YELLOW; URINE GLUCOSE-RANDOM* NEGATIVE (Negative); URINE KETONES NEGATIVE (Negative); URINE LEUKOCYTES-REFLEX TRACE (Negative); URINE NITRITE-REFLEX NEGATIVE (Negative); URINE PROTEIN (DIPSTICK) 1+ (Negative); URINE SPECIFIC GRAVITY 1.025 (1.005-1.035); URINE UROBILINOGEN 0.2 E.U./dl (0.2-1.0)
[2021-01-29 10:30] LABS: BACTERIA-REFLEX 1-9 Few /HPF (None Seen); CASTS None Seen /LPF (None Seen); CRYSTALS None Seen /LPF (None Seen); SQUAMOUS None Seen /LPF (0-3); URINE RBC 3-10 Few /HPF (NONE SEEN); URINE WBC-REFLEX 6-15 Few /HPF (0-5)
[2021-01-29] MEDS ORDERED: LEVOFLOXACIN500 MG PO (10:40)
[2021-01-29] MEDS ORDERED: CIPROFLOXACIN500 M1 PO (10:48)
[2021-01-29 11:29] VITALS: BP 180/85
[2021-01-29 12:09] VITALS: BP 180/85
[2021-01-29 13:23] VITALS: BP 173/85
--- NOTE | 2021-01-29 13:29 | NUR ---
ASSESSMENT CHARTED. PT ALERT AND ORIENTED. VSS. QUACH D/C. POST VOID 200 CC. PACEMAKER INCISION C/DI. NO HEMATOMA NOTED. POST PACEMAKER INSTRUCTIONS GIVEN TO PT AND THE . THEY BOTH VERBERLISED UNDERSTANDING.
== END 2021-01-29 13:35 | disposition home or self-care (01) ==
LOC: CATH 09:32 → 2N 14:02
PROVIDERS: Internal Medicine Cardiovascular Disease; ADMIT Internal Medicine Cardiovascular Disease; ATTEND Internal Medicine Cardiovascular Disease
DX: I49.5 Sick sinus syndrome (principal); I10 Essential (primary) hypertension; E78.5 Hyperlipidemia, unspecified; Z79.899 Other long term (current) drug therapy; R55 Syncope and collapse; R42 Dizziness and giddiness; Z79.82 Long term (current) use of aspirin
CPT/HCPCS: 62110; 62900; 70005

== ENCOUNTER 2021-01-30 13:53 | Emergency (ER) | payer OTHER ==
[~2021-01-30] VITALS: Ht 180.3 cm; Wt 97.5 kg
[~2021-01-30 13:53] MED LIST changes: +CIPROFLOXACIN500 M1 PO; +FLOMAX0.4 MG PO; +LEVOFLOXACIN500 MG PO
[2021-01-30 15:26] LABS: URINE BILIRUBIN NEGATIVE (Negative); URINE BLOOD 2+ (Negative); URINE CLARITY CLEAR; URINE COLOR YELLOW; URINE GLUCOSE-RANDOM* NEGATIVE (Negative); URINE KETONES NEGATIVE (Negative); URINE LEUKOCYTES-REFLEX NEGATIVE (Negative); URINE NITRITE-REFLEX NEGATIVE (Negative); URINE PROTEIN (DIPSTICK) NEGATIVE (Negative); URINE UROBILINOGEN 0.2 E.U./dl (0.2-1.0)
[2021-01-30 15:37] LABS: BACTERIA-REFLEX 1-9 Few /HPF (None Seen); CRYSTALS None Seen /LPF (None Seen); HYALINE CASTS 4-10 Moderate /LPF (None Seen); SQUAMOUS None Seen /LPF (0-3); URINE RBC None Seen /HPF (NONE SEEN); URINE WBC-REFLEX 0-5 Rare /HPF (0-5)
[2021-01-30 15:53] VITALS: BP 159/79
== END 2021-01-30 15:53 | disposition home or self-care (01) ==
LOC: ER 13:53
PROVIDERS: Nurse Practitioner
DX: R33.9 Retention of urine, unspecified (principal); R30.0 Dysuria; M10.9 Gout, unspecified; I10 Essential (primary) hypertension; Z79.899 Other long term (current) drug therapy

== ENCOUNTER → 2021-05-04 | Outpatient (CLI) | payer OTHER | LOC: SJCVC 13:44 | PROVIDERS: ATTEND Internal Medicine Cardiovascular Disease | DX: R94.31 Abnormal electrocardiogram [ECG] [EKG] (principal); I49.5 Sick sinus syndrome; R42 Dizziness and giddiness; I48.0 Paroxysmal atrial fibrillation; E78.5 Hyperlipidemia, unspecified; I10 Essential (primary) hypertension; Z79.899 Other long term (current) drug therapy ==

== ENCOUNTER → 2021-06-06 | Outpatient (CLI) | payer OTHER | LOC: SJCVC 14:02 | PROVIDERS: ATTEND Internal Medicine | DX: R94.31 Abnormal electrocardiogram [ECG] [EKG] (principal); I49.5 Sick sinus syndrome; R06.00 Dyspnea, unspecified; E78.5 Hyperlipidemia, unspecified; I12.9 Hypertensive chronic kidney disease with stage 1 through stage 4 chronic kidney disease, or unspecified chronic kidney disease; N18.2 Chronic kidney disease, stage 2 (mild); R33.9 Retention of urine, unspecified; U09.9 Post COVID-19 condition, unspecified; F10.21 Alcohol dependence, in remission; D72.829 Elevated white blood cell count, unspecified; Z98.890 Other specified postprocedural states; Z79.899 Other long term (current) drug therapy; Z95.0 Presence of cardiac pacemaker ==

== ENCOUNTER → 2021-06-27 | Outpatient (CLI) | payer OTHER | LOC: RAD 12:28 | PROVIDERS: ATTEND Internal Medicine | DX: R06.02 Shortness of breath (principal); R06.00 Dyspnea, unspecified ==

== ENCOUNTER → 2021-07-15 | Outpatient (CLI) | payer OTHER ==
[~2021-07-15] VITALS: Ht 177.8 cm; Wt 97.5 kg
--- NOTE | 2021-07-19 16:06 | PATH ---
[facility] [address] [place] [address] PATHOLOGY RPT PROCEDURE Name: ITZ DAVIS Mady Room #: REG [facility] Sindhu.#: [id number] Admission: 07/15/21 Date of : 39 Discharge: Report #: [id number] Path Case #: [id number] [facility] Accession Number: [id number] . 01 Material submitted: . gastrointestinal site - GASTRITIS BX - R/O H. PYLORI . 01 Clinical history: . GASTRITIS, DYSPHAGIA . 02 Diagnosis: Gastric mucosa (biopsy): - Slight chronic gastritis, mild activity, negative for dysplasia, negative for intestinal metaplasia, negative for Helicobacter-like organisms. ([place]; 07/19/2021) [facility] 07/19/2021 1200 Local . 02 Comment: IHC for H. pylori on A1: Negative. ([place]; 07/19/2021) . 02 Electronically signed: . Casey Morgan MD, Pathologist NPI- [id number] . 01 Gross description: . Received in formalin labeled "Itz Davis, gastritis biopsy rule out H. pylori" are multiple robbins-brown soft tissue fragments measuring in aggregate 1.1 x 0.5 x 0.3 cm. The specimen is submitted entirely in A1. ([facility]; 07/17/2021) [facility] 07/17/2021 0915 Local . 02 Pathologist provided ICD-10: K29.50 . 02 CPT . 882250, K07057 Specimen Comment: A courtesy copy of this report has been sent to [phone], [phone] Specimen Comment: [phone] Specimen Comment: Report sent to / DR OWUSU Performed at: [address] [id number] MD Eben David MD Phone: [phone] Performed at: [address] [place] [address] PATHOLOGY RPT PROCEDURE Name: GLENN DAVISTasneem Earl Room #: REG [facility]#: [id number] Admission: 07/15/21 Date of : 39 Discharge: Report #: [id number] Path Case #: [id number] [address] [id number] MD Casey Morgan MD Phone: [phone]
--- NOTE | 2021-07-20 08:13 | P ---
[facility] [place] [address] PROCEDURE REPORT Name: JUAN DAVIS Room #: REG [facility]#: [id number] Admission: 07/15/21 Attend Phys: Jairo Montoya Discharge: Date of : 39 Report #: [id number] THIS REPORT FOR: cc: Pieter Balbunea MD, Christopher B. MD McElhinney, Christian C. MD ~ cc: Alton Hahn DATE OF SERVICE: 07/15/2021 PROCEDURE PERFORMED: Upper endoscopy with biopsies and esophageal dilation. HISTORY OF PRESENT ILLNESS: The patient is an 85-year-old male with a history of dysphagia. He describes high in his upper chest or throat area. It has been ongoing for approximately 3 weeks. He denies any heartburn. Does not take any antacids or any blood thinners. No previous history of upper endoscopy. His weight has been stable. DESCRIPTION OF PROCEDURE: The risks and benefits of the procedure were explained to the patient, those risks including but not limited to bleeding, perforation and the risk of sedation. He understood these risks and gave informed consent. Sedation was given using propofol per anesthesia. Next, using a standard Olympus upper endoscope, the scope was placed in the patient's mouth and advanced under direct vision through the esophagus, stomach and into the second portion of the duodenum. The larynx was normal in appearance. In the upper esophagus, there was mild compression from the aorta noted, but no obvious stricture. The mid esophagus and distal esophagus were normal. The GE junction was normal. No evidence of esophagitis. Overall, the gastric mucosa was normal. In the fundus and body, a mild gastritis was noted in the gastric antrum. Biopsies were obtained to rule out H. pylori. No evidence of ulcerations or erosions. The pylorus was normal and patent. The duodenal bulb, first and second portion were all normal. The scope was then brought back up into the patient's stomach and a Savary guidewire was inserted through the scope, leaving the guidewire in place as the scope was then withdrawn. Next, a 51-Palauan Savary dilation was then performed without difficulty. The wire and dilator removed. The scope was reintroduced into the patient's stomach. No evidence of mucosal tear was noted after dilation. The scope was then withdrawn and the procedure terminated. The patient tolerated the procedure well. IMPRESSION: 1. Mild compression of aortic arch and the proximal esophagus may be contributing to the patient's upper dysphagia. Otherwise, normal esophagus. 2. Mild gastritis. Otherwise normal upper endoscopy. RECOMMENDATIONS: 1. Await biopsy results. [address] [address] PROCEDURE REPORT Name: JUAN DAVIS Room #: REG [facility] Emily#: [id number] Admission: 07/15/21 Attend Phys: Jairo Montoya Discharge: Date of : 39 Report #: [id number] 2. Observe the patient post-dilation. If there is no benefit after dilation, consider a video swallow and esophageal manometry. Thank you for allowing me to participate in his care. <ELECTRONICALLY SIGNED> By: aJiro Molina MD 07/20/21 0813 0743 1243 Jairo Molina MD /nt
== END | disposition home or self-care (01) ==
LOC: GI 07:08
PROVIDERS: ATTEND Specialist
DX: R13.10 Dysphagia, unspecified (principal); K29.50 Unspecified chronic gastritis without bleeding; K22.2 Esophageal obstruction; S22.000A Wedge compression fracture of unspecified thoracic vertebra, initial encounter for closed fracture; E78.5 Hyperlipidemia, unspecified; M10.9 Gout, unspecified; Z98.890 Other specified postprocedural states; Z95.0 Presence of cardiac pacemaker; Z79.899 Other long term (current) drug therapy; Z20.822 Contact with and (suspected) exposure to COVID-19; X58.XXXA Exposure to other specified factors, initial encounter; Y93.89 Activity, other specified; Y92.89 Other specified places as the place of occurrence of the external cause; Y99.8 Other external cause status
CPT/HCPCS: 62110; 62900

== ENCOUNTER → 2021-07-20 | Outpatient (CLI) | payer OTHER ==
--- NOTE | 2021-08-10 13:39 | MCT ---
[facility] [place] [address] METHACHOLINE CHALLENGE TEST Name: JUAN DAVIS Room #: [facility]#: [id number] Admission: 07/20/21 Attend Phys: Duane Alex MD Discharge: Date of : 39 Report #: [id number] THIS REPORT FOR: //name// COPIES FOR: AGE: 85 SEX/RACE: M/C Height: 60 in Exam Date: 07/20/21 Weight: 210 lbs BTPS: X >> PRE BRONCHODILATOR: PREDICTED BEST %PRED FORCED VITAL CAPACITY (FRC) L LPM % FORCED EXP VOL/SEC (FEV1) 1.60 L 3.25 FEV/FVC 203 % MAX MID-EXP FLOW (FEF 25-75) 1.60 L/SEC 3.65 L/SEC 229 % PEAK EXP FLOW RATE (FEF MAX) 5.42 L/MIN 7.00 L/MIN MED-VC RATIO (FEF 50/FEF 50) .09 Baseline: Phenol Saline Level 1: 0.025 mg/ml BEST %PRED %CHANGE BEST %PRED %CHANGE FVC 3.93 L 153 % -1 % FVC 3.86 L 150 % -2 % FEV1 3.04 L 189 % -7 % FEV1 3.17 L 198 % 5 % Level 2: 0.25 mg/ml Level 3: 2.5 mg/ml BEST %PRED %CHANGE BEST %PRED %CHANGE FVC 3.81 L 148 % -3 % FVC 3.82 L 149 % -3 % FEV1 3.08 L 192 % 2 % FEV1 3.06 L 191 % 1 % . Level 4: 10 mg/ml Level 5: 25 mg/ml BEST %PRED %CHANGE BEST %PRED %CHANGE FVC 3.65 L 143 % -7 % FVC 3.75 L 146 % -5 % FEV1 2.93 L 183 % -4 % FEV1 2.93 L 183 % -3 % Post Bronchodilator: 1st Treatment Post Bronchodilator: 2nd Treatment BEST %PRED %CHANGE BEST %PRED %CHANGE FVC 3.73 L 145 % -5 % FVC L % % FEV1 3.05 L 190 % 1 % FEV1 L % % Post Bronchodilator: 3rd Treatment BEST %PRED %CHANGE [address] [address] METHACHOLINE CHALLENGE TEST Name: JUAN DAVIS Mady Room #: [facility]#: [id number] Admission: 07/20/21 Attend Phys: Duane Alex MD Discharge: Date of : 39 Report #: [id number] FVC L % % FEV1 L % % >> INTERPRETATION: DATE OF SERVICE: 07/20/2021 PROCEDURE: Methacholine challenge test. ATTENDING PHYSICIAN: Dr. Duane Alex INTERPRETATION: Methacholine challenge test was completed in routine fashion. FEV1 preprocedure was 3.25 liters. FEV1 with increasing doses of methacholine as per guidelines, ____ negative 7% change. Post bronchodilator therapy did not have significant improvement. Methacholine challenge test was negative. <ELECTRONICALLY SIGNED> By: Hollis Her MD 08/10/21 1339 Hollis Her MD /nt
== END ==
LOC: CAT 12:02
PROVIDERS: ATTEND Internal Medicine
DX: J98.11 Atelectasis (principal); J92.9 Pleural plaque without asbestos; K80.20 Calculus of gallbladder without cholecystitis without obstruction; I70.0 Atherosclerosis of aorta; R06.00 Dyspnea, unspecified; R91.8 Other nonspecific abnormal finding of lung field; I25.10 Atherosclerotic heart disease of native coronary artery without angina pectoris; Z20.822 Contact with and (suspected) exposure to COVID-19

== ENCOUNTER → 2021-07-22 | Outpatient (CLI) | payer OTHER | END | disposition home or self-care (01) | LOC: SJCVC 13:25 | PROVIDERS: ATTEND Internal Medicine | DX: Z79.899 Other long term (current) drug therapy (principal); E78.5 Hyperlipidemia, unspecified; I10 Essential (primary) hypertension; Z98.890 Other specified postprocedural states ==

== ENCOUNTER → 2021-08-15 | Outpatient (CLI) | payer OTHER | LOC: SJCVC 13:35 | PROVIDERS: ATTEND Internal Medicine | DX: R94.31 Abnormal electrocardiogram [ECG] [EKG] (principal); I45.10 Unspecified right bundle-branch block; I49.5 Sick sinus syndrome; I12.9 Hypertensive chronic kidney disease with stage 1 through stage 4 chronic kidney disease, or unspecified chronic kidney disease; N18.2 Chronic kidney disease, stage 2 (mild); E78.5 Hyperlipidemia, unspecified; U09.9 Post COVID-19 condition, unspecified; G47.33 Obstructive sleep apnea (adult) (pediatric); Z79.899 Other long term (current) drug therapy ==